=== PATIENT | female | born 1995 | race Caucasian/White ===

== ENCOUNTER 2017-02-04 00:34 | Emergency (ER) | payer OTHER ==
[~2017-02-04] VITALS: Ht 167.6 cm; Wt 140.5 kg
[2017-02-04 01:00] LABS: HEMATOCRIT 41.4 % (36.0-46.0); MCH 26.7 PG (29.0-34.0); MCHC 32.6 G/DL (30.0-36.0); MCV 81.8 FL (83-99); MEAN PLAT.VOLUME 10.5 uM^3 (9.5-12.4); PLATELET COUNT 259 K/uL (156-360); RBC DIS.WIDTH-CV 13.4 % (11.8-14.6); RBC DIS.WIDTH-SD 39.9 % (39-53); RED BLOOD COUNT 5.06 M/uL (3.80-5.20); WHITE BLOOD COUNT 10.6 K/uL (4.1-10.2)
[2017-02-04 01:12] LABS: CHLORIDE 106 mEq/L (99-109); POTASSIUM 3.8 mEq/L (3.7-5.4); SODIUM 141 mEq/L (136-147)
[2017-02-04 01:14] LABS: GLUCOSE 103 mg/dL (70-99)
[2017-02-04 01:15] LABS: ANION GAP 13 MEQ/L (2-14)
[2017-02-04 01:16] LABS: TOTAL BILIRUBIN 0.5 mg/dL (0.0-1.0)
[2017-02-04 01:17] LABS: ALKALINE PHOSPHATASE 66 IU/L (3-129)
[2017-02-04 01:18] LABS: GFR ESTIMATE (CALCULATED) > 59 mL/min/
[2017-02-04 01:19] LABS: UREA NITROGEN (BUN) 13 mg/dL (9-23)
[2017-02-04 01:21] LABS: LIPASE 10 U/L (1.0-51.0)
[2017-02-04 01:27] LABS: QUANTITATIVE HCG < 4.0 MIU/ML
[2017-02-04] MEDS ORDERED: FIORICET 50-301 EACH PO (02:48)
[2017-02-04] MEDS ORDERED: ZOFRAN ODT4 MG PO (02:48)
[2017-02-04 03:16] VITALS: BP 122/80
== END 2017-02-04 03:17 | disposition home or self-care (01) ==
LOC: EXP 00:34 → EME 00:34 → EXP 03:17
DX: R51 Headache (principal); J45.909 Unspecified asthma, uncomplicated
CPT/HCPCS: 80053; 81003; 83690; 84702; 85027; 99281; 99284; J1200; J1885; J2765; J7030

== ENCOUNTER 2017-02-06 20:34 | Emergency (ER) | payer OTHER ==
[~2017-02-06] VITALS: Ht 167.6 cm; Wt 141.4 kg
[~2017-02-06 20:34] MED LIST: FIORICET 50-301 EACH PO; ZOFRAN ODT4 MG PO
[2017-02-06 21:08] LABS: HEMATOCRIT 39.9 % (36.0-46.0); MCH 26.8 PG (29.0-34.0); MCHC 32.6 G/DL (30.0-36.0); MCV 82.3 FL (83-99); MEAN PLAT.VOLUME 10.8 uM^3 (9.5-12.4); PLATELET COUNT 252 K/uL (156-360); RBC DIS.WIDTH-CV 13.2 % (11.8-14.6); RBC DIS.WIDTH-SD 39.2 % (39-53); RED BLOOD COUNT 4.85 M/uL (3.80-5.20); WHITE BLOOD COUNT 10.2 K/uL (4.1-10.2)
[2017-02-06 21:17] LABS: CHLORIDE 108 mEq/L (99-109); POTASSIUM 3.8 mEq/L (3.7-5.4); SODIUM 141 mEq/L (136-147)
[2017-02-06 21:19] LABS: GLUCOSE 87 mg/dL (70-99)
[2017-02-06 21:21] LABS: ANION GAP 10 MEQ/L (2-14)
[2017-02-06 21:22] LABS: TOTAL BILIRUBIN 0.3 mg/dL (0.0-1.0)
[2017-02-06 21:23] LABS: ALKALINE PHOSPHATASE 64 IU/L (3-129); GFR ESTIMATE (CALCULATED) > 59 mL/min/
[2017-02-06 21:24] LABS: UREA NITROGEN (BUN) 11 mg/dL (9-23)
[2017-02-06 21:25] LABS: DIRECT BILIRUBIN 0.1 mg/dL (0.0-0.3)
[2017-02-06 21:26] LABS: LIPASE 14 U/L (1.0-51.0)
[2017-02-06 21:29] LABS: TROP-I INTERPRETATION NEGATIVE; TROPONIN-I < 0.01 ng/mL (0.0-0.30)
[2017-02-06 21:32] LABS: QUANTITATIVE HCG < 4.0 MIU/ML
[2017-02-06] MEDS ORDERED: ZANTAC150 MG PO (23:42)
[2017-02-07 00:14] VITALS: BP 118/69
== END 2017-02-07 00:15 | disposition home or self-care (01) ==
LOC: EME → EDBD 20:34 → EME 02-07 00:15
PROVIDERS: Emergency Medicine
DX: K29.70 Gastritis, unspecified, without bleeding (principal); R11.2 Nausea with vomiting, unspecified; R07.9 Chest pain, unspecified
CPT/HCPCS: 71020; 74177; 80048; 80076; 83690; 83880; 84484; 84702; 85027; 93005; 99281; 99284; J2270; J2405; J7050

== ENCOUNTER 2017-12-24 10:44 | Emergency (ER) | payer OTHER ==
[~2017-12-24] VITALS: Ht 167.6 cm; Wt 124.5 kg
[~2017-12-24 10:44] MED LIST changes: +ZANTAC150 MG PO
[2017-12-24 11:29] LABS: APPEARANCE CLOUDY ((CLEAR)); BILIRUBIN NEGATIVE; BLOOD MODERATE; COLOR AMBER ((YELLOW)); GLUCOSE (STRIP) NEGATIVE; KETONES NEGATIVE; LEUKOCYTES MODERATE; NITRITE NEGATIVE; PROTEIN (STRIP) 30; UROBILINOGEN 0.2 MG/DL (0.2-1.0)
[2017-12-24 11:41] LABS: HEMATOCRIT 38.7 % (36.0-46.0); HEMOGLOBIN 13.3 G/DL (11.9-15.5); MCH 28.9 PG (29.0-34.0); MCHC 34.4 G/DL (30.0-36.0); MCV 83.9 FL (83-99); PLATELET COUNT 129 K/uL (156-360); RBC DIS.WIDTH-CV 12.9 % (11.8-14.6); RBC DIS.WIDTH-SD 39.4 % (39-53); RED BLOOD COUNT 4.61 M/uL (3.80-5.20); WHITE BLOOD COUNT 3.4 K/uL (4.1-10.2)
[2017-12-24 11:50] LABS: CHLORIDE 106 mEq/L (99-109); POTASSIUM 3.6 mEq/L (3.7-5.4); SODIUM 140 mEq/L (136-147)
[2017-12-24 11:50] LABS: EPITHELIAL CELLS 3+ /HPF; MUCUS 2+ /LPF; RED BLOOD CELLS 40-50 /HPF (0-5); WHITE BLOOD CELLS 30-40 /HPF (0-5)
[2017-12-24 11:51] LABS: BACTERIA 2+ /HPF; UCUL ADDED? YES
[2017-12-24 11:52] LABS: GLUCOSE 92 mg/dL (70-99); TOTAL PROTEIN 6.7 g/dL (6.4-8.3)
[2017-12-24 11:54] LABS: TOTAL BILIRUBIN 0.5 mg/dL (0.0-1.0)
[2017-12-24 11:55] LABS: ALKALINE PHOSPHATASE 63 IU/L (3-129); CREATININE 0.8 mg/dL (0.6-1.3); GFR ESTIMATE (CALCULATED) > 59 mL/min/
[2017-12-24 11:57] LABS: AST (GOT) 21 IU/L (2-34); UREA NITROGEN (BUN) 11 mg/dL (9-23)
[2017-12-24 11:58] LABS: ALT (GPT) 22 IU/L (3-49)
[2017-12-24 12:04] LABS: QUANTITATIVE HCG < 4.0 MIU/ML
[2017-12-24] MEDS ORDERED: PHENERGAN25 MG PR (13:13)
[2017-12-24 13:37] VITALS: BP 123/65
== END 2017-12-24 13:46 | disposition home or self-care (01) ==
LOC: EME 10:44
DX: R11.2 Nausea with vomiting, unspecified (principal); R10.13 Epigastric pain; R19.7 Diarrhea, unspecified
CPT/HCPCS: 80053; 81003; 84702; 85027; 87086; 99281; 99285; J2405; J7030

== ENCOUNTER 2018-01-17 11:52 | Emergency (ER) | payer OTHER ==
[~2018-01-17] VITALS: Ht 167.6 cm; Wt 126.0 kg
[~2018-01-17 11:52] MED LIST changes: +PHENERGAN25 MG PR
[2018-01-17 12:24] LABS: HEMATOCRIT 40.1 % (36.0-46.0); HEMOGLOBIN 14.1 G/DL (11.9-15.5); MCH 29.6 PG (29.0-34.0); MCHC 35.2 G/DL (30.0-36.0); MCV 84.1 FL (83-99); PLATELET COUNT 245 K/uL (156-360); RBC DIS.WIDTH-SD 40.1 % (39-53); RED BLOOD COUNT 4.77 M/uL (3.80-5.20); WHITE BLOOD COUNT 10.6 K/uL (4.1-10.2)
[2018-01-17 12:34] LABS: CHLORIDE 110 mEq/L (99-109); POTASSIUM 3.9 mEq/L (3.7-5.4); SODIUM 143 mEq/L (136-147)
[2018-01-17 12:35] LABS: GLUCOSE 103 mg/dL (70-99)
[2018-01-17 12:39] LABS: CREATININE 0.7 mg/dL (0.6-1.3); GFR ESTIMATE (CALCULATED) > 59 mL/min/
[2018-01-17 12:40] LABS: UREA NITROGEN (BUN) 9 mg/dL (9-23)
[2018-01-17 12:48] LABS: QUANTITATIVE HCG < 4.0 MIU/ML
[2018-01-17 12:53] LABS: APPEARANCE CLEAR ((CLEAR)); BILIRUBIN NEGATIVE; BLOOD MODERATE; COLOR YELLOW ((YELLOW)); GLUCOSE (STRIP) NEGATIVE; KETONES NEGATIVE; LEUKOCYTES NEGATIVE; NITRITE NEGATIVE; PROTEIN (STRIP) NEGATIVE; SPECIFIC GRAVITY 1.012 (1.000-1.030); UROBILINOGEN 0.2 MG/DL (0.2-1.0)
[2018-01-17 12:57] LABS: BACTERIA NONE SEEN /HPF; EPITHELIAL CELLS RARE /HPF; MUCUS TRACE /LPF; RED BLOOD CELLS 0-5 /HPF (0-5); UCUL ADDED? NO; WHITE BLOOD CELLS 0-5 /HPF (0-5)
[2018-01-17 14:53] LABS: ALBUMIN 4.4 g/dL (3.2-4.8)
[2018-01-17 14:56] LABS: TOTAL PROTEIN 7.2 g/dL (6.4-8.3)
[2018-01-17 14:58] LABS: TOTAL BILIRUBIN 0.7 mg/dL (0.0-1.0)
[2018-01-17 14:59] LABS: ALKALINE PHOSPHATASE 61 IU/L (3-129)
[2018-01-17 15:01] LABS: AST (GOT) 17 IU/L (2-34); DIRECT BILIRUBIN 0.3 mg/dL (0.0-0.3)
[2018-01-17 15:02] LABS: ALT (GPT) 20 IU/L (3-49); LIPASE 13 U/L (1.0-51.0)
[2018-01-17] MEDS ORDERED: NAPROSYN500 MG PO (17:51)
[2018-01-17] MEDS ORDERED: BENTYL10 MG PO (18:08)
[2018-01-17] MEDS ORDERED: ZOFRAN4 MG SL (18:08)
[2018-01-17 18:24] VITALS: BP 122/77
== END 2018-01-17 18:27 | disposition home or self-care (01) ==
LOC: EME 11:52
DX: N94.6 Dysmenorrhea, unspecified (principal); R10.9 Unspecified abdominal pain; F41.9 Anxiety disorder, unspecified; J45.909 Unspecified asthma, uncomplicated
CPT/HCPCS: 74176; 76856; 80048; 80076; 81003; 83690; 84702; 85027; 99281; 99285; J1885; J2405; J7030